=== PATIENT | female | born 1975 ===

== ENCOUNTER 2017-12-22 14:17 | Inpatient (IN) | payer BC ==
[2017-12-19 11:48] VITALS: BMI 32.8
[2017-12-22] MEDS ORDERED: HYDROmorphone 0.5 mg/0.5 ml ISec IVP PRN (22:26)
[2017-12-22] MEDS: Metoprolol Succinate 50 mg XL Tab PO SCH (22:31)
--- NOTE | 2017-12-23 06:25 | HP ---
HISTORY OF PRESENT ILLNESS: This is a 42-year-old G3, P 2-0-1-2, status post partial hysterectomy in 05/2015 who has been transferred from [place] today to [facility] to have a diagnostic laparoscopy done with Dr. Carreno tomorrow. The patient reports that she has had lower abdominal pain since last Saturday. The patient had gone to [facility] and was prescribed antibiotics for UTI. The patient reports no imaging was done there. The patient reports that the pain had become worse and so she went to her primary care doctor who changed her antibiotics, and the patient reports that the pain became increasingly worse and was bad on , on 12/19/2017, when she went to [facility]. The patient reported at that time, the pain was worsening with passing gas and urinating. The patient reports that the pain is constant. It can become worse, but it does not subside. The pain seems to be more on the left than the right but overall she feels that the pain is banded pain across her lower abdomen. She reports that it feels like a contraction the does not go away. At [facility], she underwent abdominal and pelvic CT scan on 12/19/2017 that revealed a cystic pelvic mass, likely adnexal in origin. Alternatively, this could be related to the sigmoid colon and represent drainable collection/abscess and a pelvic ultrasound was recommended. Transvaginal ultrasound was done on as well which revealed a complex primarily solid mass in the left hemipelvis/left adnexa. This corresponds to the findings of the recent CT scan and the findings are nonspecific, and the pelvic MRI was advised per Dr. Carreno's note. The MRI done yesterday reports that the mass appears to be ovarian and so the patient has been transferred from [place] to [facility] to Dr. Carreno's service for a diagnostic laparoscopy, possible removal of adnexal mass for tomorrow during the day. PAST MEDICAL HISTORY: Lupus, fibromyalgia, diverticulosis, history of diverticulitis in 2004, hypertension, increased cholesterol, and asthma. PAST SURGICAL HISTORY: The patient underwent a robotic hysterectomy in 05/2015, done by her ASSESSOR, Dr. Gladis Ramírez. This was done for abnormal Pap/HPV, and the patient does also report that she had history of fibroids. She also underwent laparoscopic bilateral tubal ligation in 2010. She has undergone colonoscopy x5 and endoscopy x2. MEDICATIONS: Montelukast 10 mg at bedtime, metoprolol succinate ER 50 mg, and albuterol as needed. ALLERGIES: NO KNOWN DRUG ALLERGIES. FAMILY HISTORY: Father , he had a history of prostate cancer, hypertension, diabetes, glaucoma, heart disease, and Alzheimer's. Mom has thyroid disease and dementia; and the sister has thyroid cancer, cervical cancer, and breast cancer. SOCIAL HISTORY: The patient reports that she quit tobacco 20 years ago. She reports that she drinks alcohol occasionally; and denies illicit drug use. OB HISTORY: In 1998, she underwent a vaginal delivery of a female . The patient reports that she was swollen and may have had preeclampsia in 2000, she had a termination. In 2002, she underwent a vaginal delivery at full term of a female infant. ASSESSOR HISTORY: Menarche at 13, periods regular, history of chlamydia and history of abnormal Pap as well as history o fibroids. PHYSICAL EXAMINATION: GENERAL: The patient appears comfortable lying in bed. VITAL SIGNS: Afebrile, stable vital signs. HEART: Regular rate and rhythm. LUNGS: Clear to auscultation bilaterally. ABDOMEN: Positive bowel sounds. Soft. No rebound or guarding. Nontender with palpation. EXTREMITIES: Nontender. No edema. GENITOURINARY: Vaginal exam deferred. LABORATORY DATA: On 12/21/2017, her white count was 7.3, hemoglobin was 12.4. IMAGING: As above. ASSESSMENT AND PLAN: This is a 42-year-old G3, P 2-0-1-2, status post hysterectomy in 05/2015 who has had constant lower abdominal pain for one week that has become increasingly worse over the past week. The patient has now been transferred from [facility] to Dr. Carreno's service for a diagnostic laparoscopy tomorrow. The patient to be made n.p.o. tonight. Fabrice Odell MD
[2017-12-23] MEDS: Metoprolol Succinate 50 mg XL Tab PO SCH (08:16)
[2017-12-23] MEDS ORDERED: Influenza Vaccine (5 YR UP)/PF 60 MCG/0.5 ML SYR IM ONE (09:00)
[2017-12-23] MEDS ORDERED: Pneumococcal 23-Valent Vaccine IM ONE (09:00)
[2017-12-23] MEDS ORDERED: Midazolam 2 MG/2 ML VIAL ONE (12:35)
[2017-12-23] MEDS ORDERED: Succinylcholine 200 mg/10 ml Inj IV ONE (12:35)
[2017-12-23] MEDS ORDERED: Rocuronium 10 mg/ml (5 ml) ONE (12:35)
[2017-12-23] MEDS ORDERED: Propofol 10 mg/ml Inj (20 ML) ONE (12:35)
[2017-12-23] MEDS ORDERED: Lidocaine 4% (Laryng-O-Jet) Kit MM ONE (12:36)
[2017-12-23] MEDS ORDERED: Neostigmine 1:1000 (1 mg/ml) Inj ONE (12:37)
[2017-12-23] MEDS ORDERED: Bupivacaine HCl 0.25% PF (30 ml) Inj ONE (12:45)
--- NOTE | 2017-12-23 13:30 | CP.PCM.HP ---
History of Present Illness - History of Present Illness History of Present Illness: Pt reports continued pain/discomfort. Pt states this is well controlled with pain medication. Discussed with patient the R/B/A of procedure including infection, bleeding/hemorrhage, organ damage including bowel injury or urinary tract injury. Pt consented for laparoscopy, possible laparotomy, removal of cyst/mass, possible removal of ovary, done robotically assisted. All patient questions answered. Present on Admission - Present on Admission Any Indicators Present on Admission: No History of DVT/PE: No History of Uncontrolled Diabetes: No Urinary Catheter: No Decubitus Ulcer Present: No Review of Systems - Constitutional Constitutional: absent: Chills, Fever - Cardiovascular Cardiovascular: absent: Chest Pain Past Patient History - Infectious Disease Hx of Infectious Diseases: None - Past Medical History & Family History Past Medical History?: Yes - Past Social History Smoking Status: Never Smoked - CARDIAC Hx Hypertension: Yes - PULMONARY Hx Respiratory Disorders: Yes Hx Asthma: Yes Hx Pneumonia: Yes (2010) - NEUROLOGICAL Hx Neurological Disorder: Yes Hx Migraine: Yes - HEENT Hx HEENT Problems: Yes (GLASSES) - RENAL Hx Chronic Kidney Disease: No - ENDOCRINE/METABOLIC Hx Systemic Lupus Erythematosus: Yes (IN REMISSION) - HEMATOLOGICAL/ONCOLOGICAL Hx Blood Disorders: No - INTEGUMENTARY Hx Dermatological Problems: No - MUSCULOSKELETAL/RHEUMATOLOGICAL Hx Falls: No - GASTROINTESTINAL Hx Gastrointestinal Disorders: Yes (POLYPS) Hx Diverticulitis: Yes Hx Gastroesophageal Reflux: Yes - GENITOURINARY/GYNECOLOGICAL Hx Genitourinary Disorders: Yes (FIBROID UTERUS,HYSTERECTOMY,TUBAL LIGATION) Hx Urinary Tract Infection: Yes (LONG AGO) Other/Comment: L OVARIAN CYST 12-19-17 - PSYCHIATRIC Hx Substance Use: No - SURGICAL HISTORY Hx Surgeries: Yes (TUBAL LIGATION,D/C) Hx Dilation and Curettage: Yes Hx Hysterectomy: Yes (2015) Hx Tubal Ligation: Yes - ANESTHESIA Hx Anesthesia: Yes Hx Anesthesia Reactions: Yes (NAUSEA / VOMITING ) Hx Malignant Hyperthermia: No Meds Allergies/Adverse Reactions: Allergies Allergy/AdvReac Type Severity Reaction Status Date / Time No Known Allergies Allergy Verified 12/19/17 18:00 Physical Exam - Constitutional Appears: Non-toxic - Eye Exam Eye Exam: Normal appearance, PERRL - ENT Exam ENT Exam: Mucous Membranes Moist - Respiratory Exam Respiratory Exam: NORMAL BREATHING PATTERN - GI/Abdominal Exam Additional comments: soft, nondistended, +tenderness with deep palpation Results - Vital Signs Recent Vital Signs: Last Vital Signs Temp 98.4 F 12/23/17 08:18 Pulse 68 12/23/17 08:18 Resp 19 12/23/17 08:18 BP 109/70 12/23/17 08:18 Pulse Ox 97 12/23/17 08:18 Assessment & Plan - Assessment and Plan (Free Text) Assessment: Pelvic cyst/mass with abdominal pain. Plan: As above. Consented for robotic asst laparoscopy, removal of cyst/mass, possible removal of ovary, possible laparotomy. Discussed plan with patient and all patient questions answered. - Date & Time Date: 12/23/17 Time: 13:35
[2017-12-23] MEDS ORDERED: Lactated Ringer's 1,000 ML IV ONE ×3 (15:21→18:30)
[2017-12-23] MEDS ORDERED: Dexamethasone 4 mg/1 ml ONE (15:52)
[2017-12-23] MEDS ORDERED: Bupivacaine 0.25% Inj(30mL) IJ ONE ×3 (15:53→16:00)
[2017-12-23] MEDS ORDERED: Dexamethasone 4 mg/1 ml IVP PRN (17:24)
[2017-12-23] MEDS ORDERED: DiphenhydrAMINE 50 mg/ml Inj IVP PRN ×2 (17:24→18:11)
[2017-12-23] MEDS ORDERED: Lactated Ringer's 1,000 ML IV SCH (17:30)
[2017-12-23] MEDS ORDERED: Oxycodone/Acetaminophen 5/325 mg Tab PO PRN (17:58)
[2017-12-23] MEDS ORDERED: Naloxone 0.4 mg/ml Inj (Adult) IVP PRN (18:11)
--- NOTE | 2017-12-23 19:48 | OP ---
PROCEDURE DATE: 12/22/2017 SURGEON: Shai Omalley MD DIAGNOSTIC RADIOLOGIST: Matthew Carreno MD PREOPERATIVE DIAGNOSES: 1. Pelvic pain, intractable acute. 2. Rule out left ovarian torsion. POSTOPERATIVE DIAGNOSES: 1. Intractable pelvic pain. 2. Left ovarian torsion, acute. PROCEDURES PERFORMED: Emergency robotic da Teodoro laparoscopy, left salpingo-oophorectomy, right salpingectomy, cystoscopy with left ureteral catheterization and injection of dye. Left Ureterolysis. ESTIMATED BLOOD LOSS: Minimal. COMPLICATIONS: None. SAMPLES: Left tube and ovary and right tube and pelvic lavage. INDICATION FOR THE PROCEDURE: The patient is a 42-year-old who presented to the hospital via the emergency room with severe pelvic pain, abdominal pain, unrelenting. She was treated with pain medications. Imaging studies showed presence of a pelvic mass suggestive of a potential ovarian mass. There was also question about the possibility of an ovarian torsion as the pain was extremely acute in moments and lesser at other moments. Prior to the surgery, the patient was counseled with regards to the risks and benefits of the procedure and to the fact that the procedure was more complicated by the fact that she had prior pelvic surgery for hysterectomy. She understood and verbalized an understanding of the risks and the benefits and was taken to the OR. DESCRIPTION OF PROCEDURE: After adequate anesthesia was obtained, the patient was placed in a dorsal lithotomy position. She was prepped and draped, the surgeon gowned and gloved. Attention was on the abdomen where an open laparoscopy was performed by making an incision on the umbilicus entering the peritoneum and then inserting bluntly a laparoscopic port. At this point, under direct visualization, a second port was placed in the left upper quadrant. Diagnostic laparoscopy was performed at this time reviewing the presence of blood in the pelvis with left ovary being twisted and hemorrhagic. At this point, additional ports were inserted in right upper quadrant and left upper quadrant and given the fact that there were significant pelvic adhesions and we were able to see the ureter, a cystoscopy was performed and a 5-Kyrgyz catheter was inserted into the right ureter all the way to the distal ureter and IC-Green was injected. At this point, the da Teodoro Xi robot was brought on to the field and docked and the procedure was started. The ovary was elevated and it clearly had significant distention and also a necrotic appearance, and there was a significant distention of the pedicle beyond where it was strictured. Since this has been going on for days, the only option at this point was to proceed with an oophorectomy. Fluorescent technology was used to identify the ureter, which was seen clearly and at this point, the left ureter was dissected out and away from the pedicle. I was able to elevate the pedicle and coagulate it and progressively dissect the ovary off. The ovary was then placed in an Endobag and removed from the abdominal cavity. On the right hand side, the fallopian tube also looked a little distended, so I proceeded with a salpingectomy on the opposite side also for cancer prevention and the tube was taken out and sent to Pathology. At this point, it was checked for hemostasis and appeared to be excellent. The instruments were removed. The fascia was closed using 0 PDS for the fascia and 4-0 Monocryl for the skin. At the end of the procedure, all tips and instrument counts were correct. The patient tolerated the procedure well and was taken to the recovery room in excellent condition. Shai Omalley MD [facility]
[2017-12-24 06:32] LABS: HEMOGLOBIN 12.7 g/dL (12.0-16.0); MEAN CELL VOLUME 88.4 fl (81.0-99.0); MEAN CORPUSCULAR HEMOGLOBIN 30.2 pg (27.0-31.0); MEAN CORPUSCULAR HGB CONC 34.2 g/dL (33.0-37.0); RBC 4.22 Mil/uL (3.80-5.20); RED CELL DISTRIBUTION WIDTH 14.1 % (11.5-14.5); WHITE BLOOD COUNT 8.6 K/uL (4.8-10.8)
[2017-12-24] MEDS: Metoprolol Succinate 50 mg XL Tab PO SCH (09:20)
[2017-12-24] MEDS ORDERED: Influenza Vaccine (5 YR UP)/PF 60 MCG/0.5 ML SYR IM ONE (11:12)
[2017-12-24] MEDS ORDERED: Pneumococcal 23-Valent Vaccine IM ONE (11:13)
[2017-12-24 16:26] VITALS: BP 124/81; PULSE 64; RESP 18; TEMP 97.9; O2SAT 98
== END 2017-12-24 19:10 | disposition home or self-care (01) | DRG 743 ==
LOC: H.MEDSURG1 19:40
PROVIDERS: ADMIT Obstetrics & Gynecology; ATTEND Obstetrics & Gynecology
PROC: 8E0W4CZ Robotic Assisted Procedure of Trunk Region, Percutaneous Endoscopic Approach (ICD-10-PCS; 2017-12-23)
PROC: 0T9B40Z Drainage of Bladder with Drainage Device, Percutaneous Endoscopic Approach (ICD-10-PCS; 2017-12-23)
PROC: 0UT5FZZ Resection of Right Fallopian Tube, Via Natural or Artificial Opening With Percutaneous Endoscopic Assistance (ICD-10-PCS; principal; 2017-12-23 13:00)
PROC: 0UT1FZZ Resection of Left Ovary, Via Natural or Artificial Opening With Percutaneous Endoscopic Assistance (ICD-10-PCS; 2017-12-23 13:00)
PROC: 3E02340 Introduction of Influenza Vaccine into Muscle, Percutaneous Approach (ICD-10-PCS; 2017-12-24)
PROC: 3E0234Z Introduction of Serum, Toxoid and Vaccine into Muscle, Percutaneous Approach (ICD-10-PCS; 2017-12-24)
DX: N83.512 Torsion of left ovary and ovarian pedicle (principal); N83.12 Corpus luteum cyst of left ovary; N73.6 Female pelvic peritoneal adhesions (postinfective); R10.2 Pelvic and perineal pain; M79.7 Fibromyalgia; M32.9 Systemic lupus erythematosus, unspecified; J45.909 Unspecified asthma, uncomplicated; I10 Essential (primary) hypertension; Z23 Encounter for immunization; Z90.710 Acquired absence of both cervix and uterus; Z87.440 Personal history of urinary (tract) infections; Z87.01 Personal history of pneumonia (recurrent); Z87.891 Personal history of nicotine dependence